=== PATIENT | female | born 1980 | race Caucasian/White ===

== ENCOUNTER 2020-08-09 16:37 | Emergency (ER) | payer SELFPAY ==
[2020-08-09 17:12] VITALS: BP 128/81; PULSE 76; TEMP 97.8; BMI 36.3
[2020-08-09 18:31] LABS: EPI CELLS 20 /uL (0-25.1); HCG,QUALITATIVE URINE Negative; HYALINE CASTS 0 /uL (0-3.1); PH,URINE 5.5 (5.0-8.0); URINE APPEARANCE CLEAR; URINE BACTERIA 419 /uL (0-1359); URINE BILIRUBIN NEGATIVE (NEGATIVE); URINE COLOR YELLOW; URINE GLUCOSE (UA) 3+ (NEGATIVE); URINE KETONE NEGATIVE (NEGATIVE); URINE LEUK ESTERASE NEGATIVE (NEGATIVE); URINE NITRITE NEGATIVE (NEGATIVE); URINE PROTEIN NEGATIVE (NEGATIVE); URINE RBC 6 /uL (0-23.9); URINE UROBILINOGEN 0.2 mg/dL (0.2-1.0); URINE WBC 23 /uL (0-25.8)
== END 2020-08-09 18:56 | disposition home or self-care (01) ==
LOC: JERFT 16:37
DX: L29.2 Pruritus vulvae (principal)
CPT/HCPCS: 36415; 81003; 84703; 87077; 87086; 87491; 87591; 99284-25

== ENCOUNTER 2022-10-12 19:41 | Emergency (ER) | payer OTHER ==
[2022-10-12 19:47] VITALS: BP 146/88; PULSE 98; RESP 17; TEMP 98.4; BMI 36.3
[2022-10-12] MEDS ORDERED: OXYMETAZOLINE 0.05% NASAL SOLUTION 15 ML BOTTLE NS ONE (20:16)
[2022-10-12 20:46] LABS: BASO % 0.4 % (0-2.0); EOS % 1.8 % (0-4.5); HEMOGLOBIN 11.4 GM/dL (10.7-15.3); LYMPH % 21.7 % (8-40); MCHC 32.6 g/dl (32.0-36.0); MEAN CELL VOLUME 85.8 fl (80-96); MEAN PLT VOLUME 8.1 fl (7.5-11.1); MONO % 5.5 % (3.8-10.2); NEUT % 70.6 % (42.8-82.8); PLATELET COUNT 285 10^3/uL (134-434); RBC 4.08 M/mm3 (3.60-5.2); RDW 16.1 % (11.6-15.6); WHITE BLOOD COUNT 10.9 K/mm3 (4.0-10.0)
[2022-10-12 20:57] LABS: INR 1.17 (0.83-1.09); PROTHROMBIN TIME (PATIENT) 13.5 SEC (9.7-13.0)
[2022-10-12 21:00] LABS: ACTIVATED PTT 35.4 SECONDS (25.2-36.5)
[2022-10-12 21:05] LABS: CALCIUM 9.2 mg/dL (8.5-10.1)
[2022-10-12 21:06] LABS: ALBUMIN 3.5 g/dl (3.4-5.0); BLOOD UREA NITROGEN 6.8 mg/dL (7-18)
[2022-10-12 21:09] LABS: CREATININE 0.5 mg/dL (0.55-1.3)
[2022-10-12 21:10] LABS: BILIRUBIN,TOTAL 0.9 mg/dL (0.2-1); TOT PROT 7.2 g/dl (6.4-8.2)
== END 2022-10-12 21:25 | disposition home or self-care (01) ==
LOC: JER 19:41
DX: R04.0 Epistaxis (principal); R42 Dizziness and giddiness
CPT/HCPCS: 36415; 80053; 85025; 85610; 85730; 99283-25